=== PATIENT | female | born 1975 | race Caucasian/White ===

== ENCOUNTER 2018-09-06 11:01 | Emergency (ER) | payer SELFPAY ==
[2018-09-06 12:19] LABS: Absolute Monocytes 0.5 K/uL (0.1-1.3); Absolute Neutrophil 3.7 K/uL (1.8-8.0); Basophils % 0.9 % (0-1.3); Eosinophils % 1.2 % (0-4.4); Hematocrit 41.4 % (36.0-45.0); Lymphocytes % 31.4 % (15.3-44.8); MCV 91.9 fL (80-100); MPV 9.3 fL (7.6-11.3); Monocytes % 7.4 % (3.3-12.3)
[2018-09-06 12:22] LABS: Urine Blood NEGATIVE (NEG); Urine Glucose NEGATIVE (NEG); Urine Protein NEGATIVE (NEG); Urine Specific Gravity 1.015 (1.005-1.030)
--- NOTE | 2018-09-06 12:26 | RAD REPORT ---
EXAM DESCRIPTION: RAD - Chest Single View - 09/06/2018 12:19 pm CLINICAL HISTORY: Persistent chest pain COMPARISON: September 2011 TECHNIQUE: AP portable chest image was obtained 1214 hours . FINDINGS: Lungs are clear. Heart and vasculature are normal. No measurable pleural effusion and no p neumothorax. No acute bony abnormality seen. No acute aortic findings suspected. IMPRESSION: No acute cardiopulmonary process. No significant interval change.
[2018-09-06 12:29] LABS: ALT/SGPT 30 U/L (12-78); AST/SGOT 20 U/L (15-37); Albumin 3.7 g/dL (3.4-5.0); Alkaline Phosphatase 96 U/L (45-117); BUN Blood Urea Nitrogen 18 mg/dL (7-18); Bicarbonate 27 mmol/L (21-32); Glucose Level 88 mg/dL (74-106); Magnesium 2.1 mg/dL (1.8-2.4); NT PRO-BNP 29 pg/mL (<125); Potassium 3.7 mmol/L (3.5-5.1); Protein, Total 7.4 g/dL (6.4-8.2); Sodium Level 143 mmol/L (136-145); Troponin (Emerg Dept Use Only) < 0.02 ng/mL (0.0-0.045)
[2018-09-06 12:30] LABS: Bilirubin Total < 0.1 mg/dL (0.2-1.0)
--- NOTE | 2018-09-06 12:33 | ER ---
Nurse's Notes [facility] Name: Charley Berg Age: 42 yrs Sex: Female : 1975 Arrival Date: 09/06/2018 Time: 11:03 Bed 17 Private MD: Diagnosis: Other chest pain;Paresthesia of skin Presentation: 09/06 11:09 Presenting complaint: Patient states: I have been having chest pain for the last couple la1 days and both of my arms, the bottom of my feet, and my legs keep going numb. Transition of care: patient was not received from another setting of care. Onset of symptoms was September 06, 2018. Risk Assessment: Do you want to hurt yourself or someone else? Patient reports no desire to harm self or others. Initial Sepsis Screen: Does the patient meet any 2 criteria? No. Patient's initial sepsis screen is negative. Does the patient have a suspected source of infection? No. Patient's initial sepsis screen is negative. Care prior to arrival: None. 11:09 Method Of Arrival: Ambulatory la1 11:09 Acuity: LORAINE 3 la1 Triage Assessment: 11:10 General: Appears in no apparent distress. comfortable, Behavior is cooperative, bp appropriate for age, anxious. Pain: Complains of pain in chest, right foot and left foot. EENT: No deficits noted. Neuro: Level of Consciousness is awake, alert, obeys commands, Oriented to person, place, time, situation, Appropriate for age. Cardiovascular: Reports chest pain. Respiratory: Airway is patent Respiratory effort is even, unlabored, Respiratory pattern is regular, symmetrical. GI: No signs and/or symptoms were reported involving the gastrointestinal system. : No signs and/or symptoms were reported regarding the genitourinary system. Derm: No deficits noted. Musculoskeletal: Circulation, motion, and sensation intact. Range of motion: intact in all extremities. 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 - Social history:: Smoking status: Patient uses tobacco products, smokes one pack cigarettes per day. - Ebola Screening: : No symptoms or risks identified at this time. Screenin:26 Abuse screen: Denies threats or abuse. Denies injuries from another. Nutritional bp screening: No deficits noted. Tuberculosis screening: No symptoms or risk factors identified. Fall Risk None identified. Assessment: 11:15 Reassessment: SEE TRIAGE NOTE. 42YO WF SENT FROM DRUG REHAB FOR CP AND BILATERAL FOOT bp NUMBNESS. 11:15 Pain: Pain does not radiate. Pain began suddenly. bp 12:03 Reassessment: VS STABLE, ALL CURRENT STUDIES COMPLETED, RESULTS PENDING. bp 12:51 Reassessment: PT D/C HOME AMBULATORY, DX WITH NONSPECIFIC CHEST PAIN. bp Vital Signs: 11:10 BP 136 / 74; Pulse 104; Resp 16; Temp 99.3(O); Pulse Ox 98% on R/A; Weight 77.11 kg; la1 Height 5 ft. 5 in. (165.10 cm); 12:04 BP 114 / 72; Pulse 76; Resp 16; Pulse Ox 99% ; bp 12:50 BP 106 / 91; Pulse 86; Resp 14; Pulse Ox 99% ; bp 11:10 Body Mass Index 28.29 (77.11 kg, 165.10 cm) la1 ED Course: 11:03 Patient arrived in ED. rg4 11:10 Triage completed. la1 11:10 Arm band placed on right wrist. la1 11:16 Drake Manica MD is Attending Physician. ps1 11:21 Aaron Ojeda, ALEJANDRA is Primary Nurse. bp 11:26 Patient has correct armband on for positive identification. Placed in gown. Bed in low bp position. Call light in reach. Side rails up X2. Pulse ox on. NIBP on. 11:55 Inserted saline lock: 20 gauge in right forearm, using aseptic technique. Blood bp collected. Patient maintains SpO2 saturation greater than 95% on room air. 12:12 Urine collected: clean catch specimen, clear. mh5 12:13 Warm blanket given. mh5 12:13 Urine --Ancillary (enter results) Sent. mh5 12:13 Urine Dipstick--Ancillary (enter results) Sent. mh5 12:15 X-ray completed. Portable x-ray completed in exam room. Patient tolerated procedure ml well. 12:18 XRAY Chest (1 view) In Process Unspecified. EDMS 12:53 No provider procedures requiring assistance completed. IV discontinued, intact, bp bleeding controlled, No redness/swelling at site. Pressure dressing applied. Administered Medications: No medications were administered Outcome: 12:32 Discharge ordered by . ps1 12:53 Discharged to home ambulatory. bp 12:53 Condition: stable 12:53 Discharge instructions given to patient, Instructed on discharge instructions, follow up and referral plans. Demonstrated understanding of instructions, follow-up care. 12:54 Patient left the ED. bp Signatures: Dispatcher [employer] Delmy Vargas Lee RN RN Nieves Layne [facility] Dari [place] Aaron Myers RN RN bp Singer, Phillip, MD MD ps1 Corrections: (The following items were deleted from the chart) 11:25 11:21 General: Appears bp bp
--- NOTE | 2018-09-06 12:33 | EDPHYS ---
Physician Documentation [facility] Name: Charley Berg Age: 42 yrs Sex: Female : 1975 Arrival Date: 09/06/2018 Time: 11:03 Bed 17 Private MD: ED Physician Drake Mancia HPI: 09/06 11:39 This 42 yrs old Female presents to ER via Ambulatory with complaints of Chest ps1 Pain, Numbness Of Arm, Numbness of Leg. 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 Patient states that she ps1 is currently having intermittent CP and paresthesias in bilateral and upper and lower extremities. Pain is moderate. Nothing makes it better or worse. Evaluated in [place] previously for CAD. No stenting. . 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 - Social history:: Smoking status: Patient uses tobacco products, smokes one pack cigarettes per day. - Ebola Screening: : No symptoms or risks identified at this time. ROS: 11:39 Constitutional: Negative for fever, chills, and weight loss, Eyes: Negative for injury, ps1 pain, redness, and discharge, Respiratory: Negative for shortness of breath, cough, wheezing, and pleuritic chest pain, Abdomen/GI: Negative for abdominal pain, nausea, vomiting, diarrhea, and constipation, Back: Negative for injury and pain, MS/Extremity: Negative for injury and deformity, Skin: Negative for injury, rash, and discoloration. 11:39 Cardiovascular: Positive for chest pain. 11:39 Neuro: Positive for paresthesias. ps1 Exam: 11:39 Constitutional: This is a well developed, well nourished patient who is awake, alert, ps1 and in no acute distress. Head/Face: Normocephalic, atraumatic. Eyes: Pupils equal round and reactive to light, extra-ocular motions intact. Lids and lashes normal. Conjunctiva and sclera are non-icteric and not injected. Chest/axilla: Normal chest wall appearance and motion. Nontender with no deformity. No lesions are appreciated. Cardiovascular: Regular rate and rhythm. No gallops, murmurs, or rubs. Normal PMI, no JVD. No pulse deficits. Respiratory: Lungs have equal breath sounds bilaterally, clear to auscultation and percussion. No rales, rhonchi or wheezes noted. No increased work of breathing, no retractions or nasal flaring. Abdomen/GI: Soft, non-tender, with normal bowel sounds. No distension or tympany. No guarding or rebound. No evidence of tenderness throughout. Skin: Warm, dry with normal turgor. Normal color with no rashes, no lesions, and no evidence of cellulitis. MS/ Extremity: Pulses equal, no cyanosis. Neurovascular intact. Full, normal range of motion. Neuro: Awake and alert, GCS 15, oriented to person, place, time, and situation. Cranial nerves II-XII grossly intact. Sensory grossly intact. Vital Signs: 11:10 BP 136 / 74; Pulse 104; Resp 16; Temp 99.3(O); Pulse Ox 98% on R/A; Weight 77.11 kg; la1 Height 5 ft. 5 in. (165.10 cm); 12:04 BP 114 / 72; Pulse 76; Resp 16; Pulse Ox 99% ; bp 12:50 BP 106 / 91; Pulse 86; Resp 14; Pulse Ox 99% ; bp 11:10 Body Mass Index 28.29 (77.11 kg, 165.10 cm) la1 MDM: 11:17 Patient medically screened. ps1 12:33 HEART Score: History: Slightly Suspicious (0), ECG: Normal (0), Age: < or = 45 years ps1 (0), Risk Factors: 1 or 2 risk factors (1), Troponin: < or = 1 x Normal Limit (0). Data reviewed: vital signs, nurses notes, lab test result(s), EKG, radiologic studies, and as a result, I will discharge patient. 09/06 11:38 Order name: CBC with Diff; Complete Time: 12:28 ps1 09/06 11:38 Order name: Magnesium; Complete Time: 12:31 ps1 09/06 11:38 Order name: NT PRO-BNP; Complete Time: 12:31 ps1 09/06 11:38 Order name: Troponin (emerg Dept Use Only); Complete Time: 12:31 ps1 09/06 11:38 Order name: DD; Complete Time: 12:35 ps1 09/06 11:38 Order name: CMP; Complete Time: 12:31 ps1 09/06 11:38 Order name: XRAY Chest (1 view); Complete Time: 12:28 ps1 09/06 11:38 Order name: EKG; Complete Time: 11:39 ps1 09/06 11:38 Order name: Cardiac monitoring; Complete Time: 12:03 ps1 09/06 11:38 Order name: EKG - Nurse/Tech; Complete Time: 11:43 ps1 09/06 11:38 Order name: IV Saline Lock; Complete Time: 12:03 ps1 09/06 11:38 Order name: Labs collected and sent; Complete Time: 12:03 ps1 09/06 11:50 Order name: Urine Dipstick--Ancillary (enter results); Complete Time: 12:28 bd 09/06 11:50 Order name: Urine --Ancillary (enter results); Complete Time: 12:28 09/06 11:38 Order name: O2 Per Protocol; Complete Time: 12:03 ps1 09/06 11:38 Order name: O2 Sat Monitoring; Complete Time: 12:03 ps1 EC:20 Rate is 79 beats/min. Rhythm is regular. QRS [place] is Normal. OR interval is normal. QRS ps1 interval is normal. QT interval is normal. No Q waves. T waves are Normal. No ST changes noted. Clinical impression: Normal ECG. Interpreted by me. Administered Medications: No medications were administered Disposition: 09/06/18 12:32 Discharged to Home. Impression: Other chest pain, Paresthesia of skin. - Condition is Stable. - Discharge Instructions: Nonspecific Chest Pain, Paresthesia. - Medication Reconciliation Form, Thank You Letter, Antibiotic Education, Prescription Opioid Use form. - Follow up: Private Physician; When: As needed; Reason: Further diagnostic work-up, Recheck today's complaints, Re-evaluation by your physician. Follow up: Emergency Department; When: As needed; Reason: Worsening of condition. - Problem is new. - Symptoms are unchanged. Signatures: Dispatcher [employer] EDMS Deuce Bond RN RN la1 Aaron Ojeda RN RN Drake Man MD MD ps1 Corrections: (The following items were deleted from the chart) 11:43 11:39 Constitutional: Negative for fever, chills, and weight loss, Eyes: Negative for ps1 injury, pain, redness, and discharge, Respiratory: Negative for shortness of breath, cough, wheezing, and pleuritic chest pain, Abdomen/GI: Negative for abdominal pain, nausea, vomiting, diarrhea, and constipation, Back: Negative for injury and pain, MS/Extremity: Negative for injury and deformity, Skin: Negative for injury, rash, and discoloration, Neuro: Negative for headache, weakness, numbness, tingling, and seizure, ps1 12:54 12:32 09/06/2018 12:32 Discharged to Home. Impression: Other chest pain; Paresthesia of bp skin. Condition is Stable. Forms are Medication Reconciliation Form, Thank You Letter, Antibiotic Education, Prescription Opioid Use. Follow up: Private Physician; When: As needed; Reason: Further diagnostic work-up, Recheck today's complaints, Re-evaluation by your physician. Follow up: Emergency Department; When: As needed; Reason: Worsening of condition. Problem is new. Symptoms are unchanged. ps1
--- NOTE | 2018-09-07 04:43 | EKG ---
Test Date: 2018-09-06 Test Time: 11:20:17 Used Car Salesperson: SABRA MEASUREMENT RESULTS: Intervals: Rate: 79 [place]: 134 QRSD: 88 QT: 360 QTc: 412 [place]: P: 42 [place]: 134 QRS: 41 T: 36 INTERPRETIVE STATEMENTS: Normal sinus rhythm Normal ECG No previous ECG available for comparison Electronically Signed On 09-07-18 04:41:47 CDT by Dawson Caal
== END 2018-09-06 12:54 | disposition home or self-care (01) ==
LOC: ER 11:01
DX: R20.2 Paresthesia of skin (principal); F17.210 Nicotine dependence, cigarettes, uncomplicated
CPT/HCPCS: 36415; 71045; 80053; 81003; 81025; 83735; 83880; 84484; 85025; 85379; 93005; 99284

== ENCOUNTER 2020-10-24 23:25 | Emergency (ER) | payer SELFPAY ==
--- OUTSIDE RECORDS SUMMARY | 2020-10-24 23:29 | XMS REPORT | Continuity of Care Document ---
:1975 Author Organization [facility] t Address [address] [place] [address] Dr. Ryder [address] [place] [id number] Care Team Providers Name Role Phone Unavailable Unavailable Unavailable Problems This patient has no known problems. Allergies, Adverse Reactions, Alerts This patient has no known allergies or adverse reactions. Medications This patient has no known medications. Procedures This patient has no known procedures. Results This patient has no known results.
[2020-10-24] MEDS ORDERED: LORazepam 2 MG/ML VIAL ONE (23:44)
[2020-10-24] MEDS ORDERED: NA CHLORIDE 0.9% 1,000 ML ONE (23:44)
--- NOTE | 2020-10-25 00:31 | ER ---
Nurse's Notes [facility] Name: Charley Berg Age: 45 yrs Sex: Female : 1975 Arrival Date: 10/24/2020 Time: 23:27 Bed 5 Private MD: Diagnosis: Anxiety disorder, unspecified;Adverse effect of amphetamines Presentation: 10/24 23:32 Chief complaint: EMS states: Pt took unknown amount of Meth, now C/O of anxiety. Pt wh states she's anxious because she might have taken too much for her. Coronavirus screen: Client denies travel out of the [place] in the last 14 days. At this time, the client does not indicate any symptoms associated with coronavirus-19. Ebola Screen: Patient negative for fever greater than or equal to 101.5 degrees Fahrenheit, and additional compatible Ebola Virus Disease symptoms Patient denies exposure to infectious person. Initial Sepsis Screen: Does the patient meet any 2 criteria? HR > 90 bpm. Does the patient have a suspected source of infection? No. Patient's initial sepsis screen is negative. Risk Assessment: Do you want to hurt yourself or someone else? Patient reports no desire to harm self or others. Onset of symptoms was October 24, 2020. 23:32 Method Of Arrival: EMS: [facility] 23:32 Acuity: LORAINE 3 Triage Assessment: 23:36 General:. 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 - Social history:: Smoking status: Patient reports the use of cigarette tobacco products, Patient uses street drugs, marijuana, Methamphetamine (Meth). - Family history:: not pertinent. - Hospitalizations: : No recent hospitalization is reported. Screenin:35 Abuse screen: Denies threats or abuse. Denies injuries from another. Nutritional screening: No deficits noted. Tuberculosis screening: No symptoms or risk factors identified. Fall Risk None identified. Assessment: 23:36 General: Appears in no apparent distress. uncomfortable, Behavior is anxious, restless. rr5 Pain: Denies pain. Neuro: Level of Consciousness is awake, alert, obeys commands, Oriented to person, place, time. Cardiovascular: Capillary refill < 3 seconds Patient's skin is warm and dry. Respiratory: Airway is patent Respiratory effort is even, unlabored, Respiratory pattern is tachypnea. GI: No signs and/or symptoms were reported involving the gastrointestinal system. : No signs and/or symptoms were reported regarding the genitourinary system. EENT: No signs and/or symptoms were reported regarding the EENT system. Derm: Skin is intact, is healthy with good turgor, Skin temperature is warm. Musculoskeletal: Circulation, motion, and sensation intact. Capillary refill < 3 seconds. 10/25 00:30 Reassessment: Patient appears in no apparent distress at this time. calm resting eyes rr5 closed breathing spontaneously at room air. 01:18 Reassessment: Patient appears in no apparent distress at this time. patient is drowsy, rr5 winsy informed ED provider and charge nurse to keep for observation. 02:00 Reassessment: attempted to wake Pt, Pt still drowsy unable to open eyes and stay awake. Primary Nurse notified. 03:30 Reassessment: Patient appears in no apparent distress at this time. drowsiness noted. rr5 04:26 Reassessment: Patient appears in no apparent distress at this time. Patient is alert, rr5 oriented x 3, equal unlabored respirations, skin warm/dry/pink. called her sister cornelio did not answer the call [phone]. patient is more awake and alert able to walk to restroom steady gait noted. 05:40 Reassessment: Patient appears in no apparent distress at this time. drowsy arouse rr5 easily,on side lying position resting eyes closed breathing spontaneously at room air. 06:20 Reassessment: Patient appears in no apparent distress at this time. Patient is alert, rr5 oriented x 3, equal unlabored respirations, skin warm/dry/pink. discharge instruction given and explained without complaints made. the sister called on the phone she said she is coming. Vital Signs: 10/24 23:32 BP 126 / 83; Pulse 115; Resp 22; Temp 98; Pulse Ox 100% ; Weight 65.77 kg; Height 5 ft. 5 in. (165.10 cm); 10/25 00:20 BP 116 / 84; Pulse 105; Resp 19; Pulse Ox 98% ; rr5 01:20 BP 121 / 70; Pulse 95; Resp 18; Pulse Ox 99% ; rr5 02:30 BP 119 / 79; Pulse 99; Resp 16; Pulse Ox 98% ; rr5 03:30 BP 110 / 70; Pulse 93; Resp 16; Temp 98.1; Pulse Ox 100% ; rr5 04:25 BP 123 / 80; Pulse 90; Resp 16; Pulse Ox 99% ; rr5 06:20 BP 113 / 62; Pulse 88; Resp 16; Pulse Ox 98% ; rr5 10/24 23:32 Body Mass Index 24.13 (65.77 kg, 165.10 cm) ED Course: 10/24 23:27 Patient arrived in ED. rn 23:27 Tariq Bell MD is Attending Physician. rn 23:27 Geovanni Espinosa RN is Primary Nurse. rr5 23:30 Inserted saline lock: 18 gauge in right forearm, using aseptic technique. rr5 23:34 Triage completed. 23:36 EKG done, by ED staff, reviewed by Tariq Bell MD. rr5 23:36 Patient has correct armband on for positive identification. Bed in low position. Call light in reach. Side rails up X 1. Pulse ox on. NIBP on. 23:37 Arm band placed on right wrist. 10/25 06:30 No provider procedures requiring assistance completed. IV discontinued, intact, rr5 bleeding controlled, No redness/swelling at site. Administered Medications: 10/24 23:35 Drug: NS 0.9% 1000 ml Route: IV; Rate: 1000 ml; Site: right forearm; rr5 10/25 00:30 Follow up: Response: No adverse reaction; IV Status: Completed infusion; IV Intake: rr5 1000ml 10/24 23:35 Drug: Ativan 1 mg Route: IVP; Site: right forearm; rr5 10/25 00:30 Follow up: Response: No adverse reaction rr5 Intake: 00:30 IV: 1000ml; Total: 1000ml. rr5 Outcome: 00:30 Discharge ordered by . rn 07:15 Discharged to home via wheelchair, with family. rr5 07:15 Condition: stable 07:15 Discharge instructions given to patient, Instructed on discharge instructions, follow up and referral plans. Demonstrated understanding of instructions, follow-up care. 07:17 Patient left the ED. rr5 Signatures: Tariq Bell MD MD rn Petrona Centeno Raymond, ALEJANDRA RN rr5
--- NOTE | 2020-10-25 00:31 | EDPHYS ---
Physician Documentation [facility] Name: Charley Berg Age: 45 yrs Sex: Female : 1975 Arrival Date: 10/24/2020 Time: 23:27 Bed 5 Private MD: ED Physician Tariq Bell HPI: 10/25 00:25 This 45 yrs old Female presents to ER via EMS with complaints of Anxiety, rn drug use. 00:25 Reports frequent anxiety attacks, and just used unknown drug, made her anxiety worse. rn Reports palpitations. . Onset: The symptoms/episode began/occurred just prior to arrival. Severity of symptoms: At their worst the symptoms were moderate in the emergency department the symptoms are unchanged. The patient has experienced similar episodes in the past. The patient has not recently seen a physician. 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 - Social history:: Smoking status: Patient reports the use of cigarette tobacco products, Patient uses street drugs, marijuana, Methamphetamine (Meth). - Family history:: not pertinent. - Hospitalizations: : No recent hospitalization is reported. ROS: 10/25 00:25 Constitutional: Negative for fever, chills, and weight loss, Eyes: Negative for injury, rn pain, redness, and discharge, Neck: Negative for injury, pain, and swelling, Cardiovascular: Negative for chest pain, and edema, Respiratory: Negative for shortness of breath, cough, wheezing, and pleuritic chest pain, Abdomen/GI: Negative for abdominal pain, nausea, vomiting, diarrhea, and constipation, Back: Negative for injury and pain, : Negative for injury, bleeding, discharge, and swelling, MS/Extremity: Negative for injury and deformity, Skin: Negative for injury, rash, and discoloration, Neuro: Negative for headache, weakness, numbness, tingling, and seizure. Exam: 00:25 Constitutional: Thin female, hyperventilating Head/Face: Normocephalic, atraumatic. rn Eyes: Pupils equal round and reactive to light, extra-ocular motions intact. Lids and lashes normal. Conjunctiva and sclera are non-icteric and not injected. Cornea within normal limits. Periorbital areas with no swelling, redness, or edema. ENT: dry MM Cardiovascular: tachycardic, regular Respiratory: Hyperventilating Abdomen/GI: soft, non-tender Skin: Warm, dry with normal turgor. Normal color with no rashes, no lesions, and no evidence of cellulitis. MS/ Extremity: Pulses equal, no cyanosis. Neurovascular intact. Full, normal range of motion. Equal circumference. Neuro: Awake and alert, GCS 15, oriented to person, place, time, and situation. Cranial nerves II-XII grossly intact. Motor strength 5/5 in all extremities. Sensory grossly intact. Cerebellar exam normal. Normal gait. 00:25 ECG was reviewed by the Attending Physician. rn Vital Signs: 10/24 23:32 BP 126 / 83; Pulse 115; Resp 22; Temp 98; Pulse Ox 100% ; Weight 65.77 kg; Height 5 ft. wh 5 in. (165.10 cm); 10/25 00:20 BP 116 / 84; Pulse 105; Resp 19; Pulse Ox 98% ; rr5 01:20 BP 121 / 70; Pulse 95; Resp 18; Pulse Ox 99% ; rr5 02:30 BP 119 / 79; Pulse 99; Resp 16; Pulse Ox 98% ; rr5 03:30 BP 110 / 70; Pulse 93; Resp 16; Temp 98.1; Pulse Ox 100% ; rr5 04:25 BP 123 / 80; Pulse 90; Resp 16; Pulse Ox 99% ; rr5 06:20 BP 113 / 62; Pulse 88; Resp 16; Pulse Ox 98% ; rr5 10/24 23:32 Body Mass Index 24.13 (65.77 kg, 165.10 cm) MDM: 10/24 23:27 Patient medically screened. rn 10/25 00:29 Differential Diagnosis drug use/intoxication, dehydration, anxiety. Data reviewed: rn vital signs, nurses notes, EKG, and as a result, I will discharge patient. Counseling: I had a detailed discussion with the patient and/or guardian regarding: the historical points, exam findings, and any diagnostic results supporting the discharge/admit diagnosis, the need for outpatient follow up, to return to the emergency department if symptoms worsen or persist or if there are any questions or concerns that arise at home. Response to treatment: the patient's symptoms have markedly improved after treatment, the patient's condition has returned to base line, the patient is now symptom free, and as a result, I will discharge patient. Special discussion: I discussed with the patient/guardian in detail that at this point there is no indication for admission to the hospital. It is understood, however, that if the symptoms persist or worsen the patient needs to return immediately for re-evaluation. ED course: Counseled regarding drug cessation. 10/24 Order name: IV Start; Complete Time: : rn 10/24 Order name: EKG; Complete Time: : rn 10/24 Order name: EKG - Nurse/Tech; Complete Time: : rn EC:25 Rate is 109 beats/min. Rhythm is regular. QRS [place] is Normal. HI interval is normal. rn QRS interval is normal. QT interval is normal. No Q waves. T waves are Normal. No ST changes noted. Clinical impression: Sinus tachycardia. Interpreted by me. Reviewed by me. Administered Medications: 10/24 Drug: NS 0.9% 1000 ml Route: IV; Rate: 1000 ml; Site: right forearm; rr5 10/25 00:30 Follow up: Response: No adverse reaction; IV Status: Completed infusion; IV Intake: rr5 1000ml 10/24 Drug: Ativan 1 mg Route: IVP; Site: right forearm; rr5 10/25 00:30 Follow up: Response: No adverse reaction rr5 Disposition: 10/25/20 00:30 Discharged to Home. Impression: Anxiety disorder, unspecified, Adverse effect of amphetamines. - Condition is Stable. - Discharge Instructions: Panic Attacks, Stimulant Use Disorder-Methamphetamines, Generalized Anxiety Disorder. - Medication Reconciliation Form, Thank You Letter, Antibiotic Education, Prescription Opioid Use form. - Follow up: Private Physician; When: As needed; Reason: Recheck today's complaints, Re-evaluation by your physician. - Problem is new. - Symptoms have improved. Signatures: Tariq Bell MD MD rn Habalo, Winsy wh Roque, Raymond, RN RN rr5 Corrections: (The following items were deleted from the chart) 07:17 00:30 10/25/2020 00:30 Discharged to Home. Impression: Anxiety disorder, unspecified; rr5 Adverse effect of amphetamines. Condition is Stable. Forms are Medication Reconciliation Form, Thank You Letter, Antibiotic Education, Prescription Opioid Use. Follow up: Private Physician; When: As needed; Reason: Recheck today's complaints, Re-evaluation by your physician. Problem is new. Symptoms have improved. rn
[2020-10-30 02:02] VITALS: TEMP 98.1
[2020-10-30 02:03] VITALS: BP 123/80; O2SAT 99
== END 2020-10-25 07:17 | disposition home or self-care (01) ==
LOC: ER 23:25
DX: F41.9 Anxiety disorder, unspecified (principal); T43.625A Adverse effect of amphetamines, initial encounter; F17.210 Nicotine dependence, cigarettes, uncomplicated
CPT/HCPCS: 93005; 96361; 96374; 99284; J7030

== ENCOUNTER 2021-04-09 21:41 | Emergency (ER) | payer SELFPAY ==
--- OUTSIDE RECORDS SUMMARY | 2021-04-09 21:45 | XMS REPORT | Continuity of Care Document ---
:1975 Author Organization [facility] t Address [address] [place] [address] Dr. Ryder [address] [place] [id number] Care Team Providers Name Role Phone Unavailable Unavailable Unavailable Problems This patient has no known problems. Allergies, Adverse Reactions, Alerts This patient has no known allergies or adverse reactions. Medications This patient has no known medications. Procedures This patient has no known procedures. Results This patient has no known results.
--- NOTE | 2021-04-09 23:13 | ER ---
Nurse's Notes [facility] Name: Charley Berg Age: 45 yrs Sex: Female : 1975 Arrival Date: 04/09/2021 Time: 22:14 Bed 12 Private MD: Diagnosis: Allergic contact dermatitis Presentation: 04/09 22:38 Chief complaint: Patient states: she thinks she has a rash from her friend's "bunnies" bb she has had it x 2 days and it contreras. Coronavirus screen: At this time, the client does not indicate any symptoms associated with coronavirus-19. Ebola Screen: No symptoms or risks identified at this time. Initial Sepsis Screen: Does the patient meet any 2 criteria? No. Patient's initial sepsis screen is negative. Does the patient have a suspected source of infection? No. Patient's initial sepsis screen is negative. Risk Assessment: Do you want to hurt yourself or someone else? Patient reports no desire to harm self or others. Onset of symptoms was April 07, 2021. 22:38 Method Of Arrival: Ambulatory bb 22:38 Acuity: LORAINE 4 bb Triage Assessment: 22:41 General: Appears uncomfortable, slender, Behavior is agitated, anxious. Pain: Complains bb of pain in left arm Pain currently is 8 out of 10 on a pain scale. Neuro: Level of Consciousness is awake, alert, obeys commands, Oriented to person, place, time, situation. Cardiovascular: Capillary refill < 3 seconds Patient's skin is warm and dry. Respiratory: Respiratory effort is even, unlabored, Respiratory pattern is regular. Derm: Rash noted that is on left arm. Musculoskeletal: Circulation, motion, and sensation intact. 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 - Social history:: Smoking status: Patient reports the use of cigarette tobacco products, smokes one-half pack cigarettes per day, Patient uses street drugs, marijuana, Patient/guardian denies using alcohol. Screenin:46 Abuse screen: Denies threats or abuse. Nutritional screening: No deficits noted. bb Tuberculosis screening: No symptoms or risk factors identified. Fall Risk None identified. Assessment: 22:46 Reassessment: No changes from previously documented assessment. see triage assessment. bb 23:42 Reassessment: Patient is alert, oriented x 3, equal unlabored respirations, skin bb warm/dry/pink. pt verbalized understanding of and agrees to plan of care discharge instructions given pt ambulated with steady gait to exit. Vital Signs: 22:38 BP 123 / 85; Pulse 91; Resp 20 S; Temp 98.2(TE); Pulse Ox 96% on R/A; Weight 71.21 kg bb (R); Height 5 ft. 5 in. (165.10 cm) (R); Pain 8/10; 22:38 Body Mass Index 26.13 (71.21 kg, 165.10 cm) bb ED Course: 22:14 Patient arrived in ED. bp1 22:40 Triage completed. bb 22:41 Arm band placed on Patient placed in an exam room, on a stretcher, on pulse oximetry. bb 22:46 Svetlana Chamberlain FNP-C is PHCP. kb 22:46 Anjana Haynes MD is Attending Physician. kb 22:46 Ruthann Capone RN is Primary Nurse. bb 22:46 Patient has correct armband on for positive identification. bb 23:43 No provider procedures requiring assistance completed. Patient did not have IV access bb during this emergency room visit. Administered Medications: 23:00 Drug: Pepcid (famotidine) 20 mg Route: PO; bb 23:44 Follow up: Response: No adverse reaction bb 23:00 Drug: predniSONE 40 mg Route: PO; bb 23:44 Follow up: Response: No adverse reaction bb 23:00 Drug: KeFLEX (cephalexin) 500 mg Route: PO; bb 23:43 Follow up: Response: No adverse reaction bb Outcome: 23:12 Discharge ordered by . kb 23:43 Discharged to home ambulatory. bb 23:43 Condition: stable 23:43 Discharge instructions given to patient, Instructed on discharge instructions, follow up and referral plans. medication usage, Demonstrated understanding of instructions, follow-up care, medications, Prescriptions given X 3. 23:44 Patient left the ED. bb Signatures: Svetlana Chamberlain FNP-C FNP-Ckb Ruthann Capone, RN RN bb Karmen Mares bp1
--- NOTE | 2021-04-09 23:13 | EDPHYS ---
Physician Documentation [facility] Name: Charley Berg Age: 45 yrs Sex: Female : 1975 Arrival Date: 04/09/2021 Time: 22:14 Bed 12 Private MD: ED Physician Anjana Haynes HPI: 04/09 23:10 This 45 yrs old Female presents to ER via Ambulatory with complaints of Rash. kb 23:10 The patient's rash thought to be caused by Contact allergy. The rash is located on the kb left arm, right leg and left leg. The rash can be described as macular, papular. Onset: The symptoms/episode began/occurred 2 day(s) ago. Associated signs and symptoms: Pertinent positives: burning sensation, itching. Severity of symptoms: At their worst the symptoms were moderate in the emergency department the symptoms are unchanged. The patient has not experienced similar symptoms in the past. The patient has not recently seen a physician. Pt states she developed a rash 2 days ago and the only thing that is new is she has been taking care of her friends rabbits. States she has an area that has gotten swollen, drained pus and is now scabbed. . 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 - Social history:: Smoking status: Patient reports the use of cigarette tobacco products, smokes one-half pack cigarettes per day, Patient uses street drugs, marijuana, Patient/guardian denies using alcohol. ROS: 23:08 Constitutional: Negative for fever, chills, and weight loss. kb 23:08 Skin: Positive for abrasion(s), rash, swelling, of the left arm, right leg and left leg. 23:08 All other systems are negative. kb Exam: 23:09 Constitutional: This is a well developed, well nourished patient who is awake, alert, kb and in no acute distress. Head/Face: Normocephalic, atraumatic. ENT: Moist Mucous membranes Respiratory: Respirations even and unlabored. No increased work of breathing, no retractions or nasal flaring. MS/ Extremity: Pulses equal, no cyanosis. Neurovascular intact. Full, normal range of motion. Neuro: Awake and alert, GCS 15, oriented to person, place, time, and situation. Moves all extremities. Normal gait. Psych: Awake, alert, with orientation to person, place and time. Behavior, mood, and affect are within normal limits. 23:09 Skin: injury, abrasion(s), small abrasion noted, of the left antecubital area and dorsal aspect of left forearm, from scratching, rash a moderate rash is noted, rash can be described as macular, papular, consistent with contact dermatitis, on the left leg and right leg and left arm. Vital Signs: 22:38 BP 123 / 85; Pulse 91; Resp 20 S; Temp 98.2(TE); Pulse Ox 96% on R/A; Weight 71.21 kg bb (R); Height 5 ft. 5 in. (165.10 cm) (R); Pain 8/10; 22:38 Body Mass Index 26.13 (71.21 kg, 165.10 cm) bb MDM: 22:46 Patient medically screened. kb 23:08 Data reviewed: vital signs, nurses notes. Data interpreted: Pulse oximetry: on room air kb is 96 %. Interpretation: normal. Counseling: I had a detailed discussion with the patient and/or guardian regarding: the historical points, exam findings, and any diagnostic results supporting the discharge/admit diagnosis, the need for outpatient follow up, a family practitioner, to return to the emergency department if symptoms worsen or persist or if there are any questions or concerns that arise at home. Administered Medications: 23:00 Drug: Pepcid (famotidine) 20 mg Route: PO; bb 23:44 Follow up: Response: No adverse reaction bb 23:00 Drug: predniSONE 40 mg Route: PO; bb 23:44 Follow up: Response: No adverse reaction bb 23:00 Drug: KeFLEX (cephalexin) 500 mg Route: PO; bb 23:43 Follow up: Response: No adverse reaction bb Disposition: 04/09/21 23:12 Discharged to Home. Impression: Allergic contact dermatitis. - Condition is Stable. - Discharge Instructions: Contact Dermatitis, [id number]. - Prescriptions for Keflex 500 mg Oral Capsule - take 1 capsule by ORAL route every 8 hours for 10 days; 21 capsule. Pepcid 20 mg Oral Tablet - take 1 tablet by ORAL route every 12 hours for 5 days; 10 tablet. Prednisone 20 mg Oral Tablet - take 1 tablet by ORAL route once daily for 5 days; 5 tablet. - Medication Reconciliation Form, Thank You Letter, Antibiotic Education, Prescription Opioid Use form. - Follow up: Emergency Department; When: As needed; Reason: Worsening of condition. Follow up: Private Physician; When: 2 - 3 days; Reason: Recheck today's complaints, Continuance of care, Re-evaluation by your physician. Signatures: Svetlana Chamberlain, ELECTRIC BATH ATTENDANT-C ELECTRIC BATH ATTENDANT-CkRuthann Skaggs RN RN bb Corrections: (The following items were deleted from the chart) 23:08 23:08 Skin: Positive for rash, swelling, of the left arm, right leg and left leg, kb kb 23:12 23:09 Skin: injury, abrasion(s), small abrasion noted, of the left antecubital area and kb dorsal aspect of left forearm, from scratching, rash a moderate rash is noted, rash can be described as macular, papular, consistent with contact dermatitis, on the left leg and right leg and left arm, kb 23:44 23:12 04/09/2021 23:12 Discharged to Home. Impression: Allergic contact dermatitis. bb Condition is Stable. Forms are Medication Reconciliation Form, Thank You Letter, Antibiotic Education, Prescription Opioid Use. Follow up: Emergency Department; When: As needed; Reason: Worsening of condition. Follow up: Private Physician; When: 2 - 3 days; Reason: Recheck today's complaints, Continuance of care, Re-evaluation by your physician. kb
[2021-04-09] MEDS ORDERED: CEPHALEXIN 250 MG CAP ONE (23:17)
[2021-04-09] MEDS ORDERED: FAMOTIDINE 20 MG TAB ONE (23:18)
[2021-04-09] MEDS ORDERED: predniSONE 20 MG TAB ONE (23:18)
[2021-04-10 01:53] VITALS: BP 123/85; TEMP 98.2; O2SAT 96
== END 2021-04-09 23:44 | disposition home or self-care (01) ==
LOC: ER 21:41
DX: L23.9 Allergic contact dermatitis, unspecified cause (principal); F17.210 Nicotine dependence, cigarettes, uncomplicated
CPT/HCPCS: 99283; J7512